=== PATIENT | male | born 1985 | race African-American/Black ===

== ENCOUNTER 2022-01-31 14:28 | Emergency (ER) | payer MEDICAID ==
[~2022-01-31] VITALS: Ht 203.2 cm; Wt 140.0 kg
[2022-01-31] MEDS ORDERED: KETOROLAC 60MG/2ML VIAL IM ONE (15:00)
[2022-01-31] MEDS ORDERED: LIDOCAINE 5% PATCH TOP SCH (15:00)
[2022-01-31] MEDS ORDERED: HYDROCODONE/ACETAMINOPHEN 5/325MG TABLET PO ONE (15:00)
[2022-01-31] MEDS ORDERED: DEXAMETHASONE 10 MG/ML VIAL IM NR (15:30)
[2022-01-31] MEDS ORDERED: KETOROLAC 60MG/2ML VIAL IM NR (16:45)
[2022-01-31] MEDS ORDERED: HYDROCODONE/ACETAMINOPHEN 5/325MG TABLET PO NR (16:45)
[2022-01-31 16:54] VITALS: BP 170/100
[2022-01-31] MEDS ORDERED: BACL-141 MT (17:28)
[2022-01-31] MEDS ORDERED: IBUP-2029 MT (17:28)
[2022-01-31] MEDS ORDERED: MED4 MT (17:28)
[2022-01-31] MEDS ORDERED: LIDO700A15 TP (17:28)
[2022-01-31] MEDS ORDERED: GABA-529 MT (17:37)
== END 2022-01-31 18:04 | disposition home or self-care (01) ==
LOC: ER 14:45
DX: G89.29 Other chronic pain (principal); M54.59 Other low back pain; I10 Essential (primary) hypertension
CPT/HCPCS: 96372; 99284; J1100; J1885; Z7610